=== PATIENT | female | born 1955 | race Caucasian/White ===

== ENCOUNTER → 2017-09-25 | Outpatient (CLI) | payer SELFPAY ==
[2017-09-25 11:53] LABS: EOS % 0.4 % (1.0-5.0); HEMATOCRIT 47.1 % (37.0-47.0); HEMOGLOBIN 15.2 g/dL (12.5-16.0); LYMPH# 1.4 (1.50-4.00); MEAN CELL VOLUME 98 fl (78-100); MEAN CORPUSCULAR HEMOGLOBIN 32 pg (27-31); MEAN CORPUSCULAR HGB CONC 32 g/dL (33-37); MEAN PLATELET VOLUME 9.5 fl (7.4-10.4); MONO # 0.3 (0.20-0.80); NEU # 6.3 (1.40-6.50); PLATELET COUNT 331 K/mm3 (130-400); RED BLOOD COUNT 4.83 M/mm3 (4.10-5.30); RED CELL DISTRIBUTION WIDTH 13.2 % (11.5-14.5)
[2017-09-25 12:48] LABS: ALBUMIN 4.3 g/dL (3.5-5.0); BUN/CREATININE RATIO 13.5 (6.0-26.0); CALCIUM 9.6 mg/dL (8.4-10.2); TOTAL BILIRUBIN 0.7 mg/dL (0.2-1.3); TOTAL PROTEIN 7.7 g/dL (6.3-8.2)
[2017-09-25 13:09] LABS: URINE APPEARANCE HAZY; URINE BILIRUBIN NEGATIVE (NEGATIVE); URINE BLOOD NEGATIVE (NEGATIVE); URINE COLOR YELLOW; URINE GLUCOSE NEGATIVE (NEGATIVE); URINE KETONE NEGATIVE (NEGATIVE); URINE LEUKOCYTE ESTERASE TRACE (NEGATIVE); URINE NITRATE NEGATIVE (NEGATIVE); URINE PROTEIN(semi-quant) NEGATIVE (NEGATIVE); URINE UROBILINOGEN NORMAL (NORMAL)
== END ==
LOC: LAB 11:35
PROVIDERS: Nurse Practitioner Family
DX: R35.0 Frequency of micturition (principal); R10.813 Right lower quadrant abdominal tenderness

== ENCOUNTER → 2018-11-21 | Outpatient (CLI) | payer MEDICARE, MEDICAID ==
[~2018-11-21] VITALS: Ht 152.4 cm; Wt 87.7 kg
[~2018-11-21] MED LIST: ALLOPURINOL300 M1 PO; ATHLETE'S FOOT1% TP; CELEXA 20MG20 MG/TA1 PO; CLARITIN LIQUI-10 MG PO; FIORICET 325 MG1 TAB; RANITIDINE HCL300 M2 PO; TRIAMCINOLONE A15 G1 TOP; ULTRAM50 M1 PO
[2018-11-21 14:26] LABS: EOS # 0.3 (0.04-0.40); HEMATOCRIT 43.6 % (37.0-47.0); HEMOGLOBIN 14.1 g/dL (12.5-16.0); LYMPH# 2.5 (1.50-4.00); MEAN CELL VOLUME 94 fl (78-100); MEAN CORPUSCULAR HEMOGLOBIN 31 pg (27-31); MEAN CORPUSCULAR HGB CONC 32 g/dL (33-37); MEAN PLATELET VOLUME 9.4 fl (7.4-10.4); MONO # 0.4 (0.20-0.80); NEU # 4.3 (1.40-6.50); PLATELET COUNT 309 K/mm3 (130-400); RED BLOOD COUNT 4.62 M/mm3 (4.10-5.30); RED CELL DISTRIBUTION WIDTH 13.3 % (11.5-14.5); WHITE BLOOD COUNT 7.7 K/mm3 (4.8-10.8)
[2018-11-21 14:40] LABS: PROTHROMBIN TIME 9.5 SECONDS (9.0-12.0)
[2018-11-21 14:41] LABS: ALBUMIN 4.1 g/dL (3.5-5.0); CALCIUM 9.4 mg/dL (8.4-10.2); POTASSIUM 3.9 mmol/L (3.6-5.0); TOTAL BILIRUBIN 0.3 mg/dL (0.2-1.3); TOTAL PROTEIN 7.6 g/dL (6.3-8.2)
[2018-11-21 15:00] VITALS: BP 138/84
[2018-11-21 15:23] LABS: URINE APPEARANCE HAZY; URINE COLOR YELLOW
[2018-11-21 15:24] LABS: URINE BILIRUBIN NEGATIVE (NEGATIVE); URINE BLOOD TRACE (NEGATIVE); URINE GLUCOSE NEGATIVE (NEGATIVE); URINE KETONE NEGATIVE (NEGATIVE); URINE LEUKOCYTE ESTERASE NEGATIVE (NEGATIVE); URINE NITRATE NEGATIVE (NEGATIVE); URINE PROTEIN(semi-quant) NEGATIVE (NEGATIVE); URINE UROBILINOGEN NORMAL (NORMAL)
== END ==
LOC: AMSURD 14:11
PROVIDERS: Internal Medicine
DX: Z01.818 Encounter for other preprocedural examination (principal); N30.00 Acute cystitis without hematuria; M17.10 Unilateral primary osteoarthritis, unspecified knee

== ENCOUNTER → 2018-11-28 | Outpatient (CLI) | payer MEDICARE, MEDICAID ==
[2018-11-21 15:00] VITALS: BP 138/84
[2018-11-28 10:55] LABS: PH-URINE 5.5 (5.0 - 8.0); URINE APPEARANCE CLOUDY; URINE BILIRUBIN NEGATIVE (NEGATIVE); URINE BLOOD TRACE (NEGATIVE); URINE COLOR YELLOW; URINE GLUCOSE NEGATIVE (NEGATIVE); URINE KETONE NEGATIVE (NEGATIVE); URINE LEUKOCYTE ESTERASE 1+ (NEGATIVE); URINE NITRATE NEGATIVE (NEGATIVE); URINE PROTEIN(semi-quant) NEGATIVE (NEGATIVE); URINE UROBILINOGEN NORMAL (NORMAL)
[2018-11-28 10:56] LABS: URINE MUCUS PRESENT (NOT PRESENT)
== END ==
LOC: LAB 09:39
PROVIDERS: Internal Medicine
DX: Z01.818 Encounter for other preprocedural examination (principal); N30.00 Acute cystitis without hematuria; M17.10 Unilateral primary osteoarthritis, unspecified knee

== ENCOUNTER → 2018-11-29 | Outpatient (CLI) | payer MEDICARE, MEDICAID ==
[2018-11-29 11:16] VITALS: BP 142/79
== END ==
LOC: PT 13:13 → EDSTATUS 13:30 → PT 13:30
DX: Z96.651 Presence of right artificial knee joint (principal)

== ENCOUNTER → 2018-11-29 | Outpatient (CLI) | payer MEDICARE, MEDICAID ==
[~2018-11-29] VITALS: Ht 152.4 cm; Wt 87.7 kg
[2018-11-29 11:16] VITALS: BP 142/79
[2018-11-29 11:26] LABS: URINE APPEARANCE CLEAR; URINE BILIRUBIN NEGATIVE (NEGATIVE); URINE BLOOD NEGATIVE (NEGATIVE); URINE COLOR YELLOW; URINE GLUCOSE NEGATIVE (NEGATIVE); URINE KETONE NEGATIVE (NEGATIVE); URINE LEUKOCYTE ESTERASE NEGATIVE (NEGATIVE); URINE NITRATE NEGATIVE (NEGATIVE); URINE PROTEIN(semi-quant) TRACE mg/dL (NEGATIVE); URINE UROBILINOGEN NORMAL (NORMAL); URINE WBC 0-1 /hpf (0-3)
== END ==
LOC: AMSURD 09:06 → LAB 09:06
PROVIDERS: Internal Medicine
DX: Z01.818 Encounter for other preprocedural examination (principal); N30.00 Acute cystitis without hematuria

== ENCOUNTER 2019-01-22 13:00 | Outpatient (RCR) | payer MEDICARE, MEDICAID ==
[2018-11-29 11:16] VITALS: BP 142/79
== END 2019-01-22 13:30 | disposition still patient (30) ==
LOC: PT 13:00
DX: Z47.1 Aftercare following joint replacement surgery (principal); Z96.651 Presence of right artificial knee joint

== ENCOUNTER → 2019-02-10 | Outpatient (CLI) | payer MEDICARE, MEDICAID ==
[2018-11-29 11:16] VITALS: BP 142/79
[2019-02-10 12:24] LABS: EOS # 0.3 (0.04-0.40); EOS % 5.5 % (1.0-5.0); HEMATOCRIT 43.3 % (37.0-47.0); HEMOGLOBIN 13.7 g/dL (12.5-16.0); MEAN CELL VOLUME 95 fl (78-100); MEAN CORPUSCULAR HEMOGLOBIN 30 pg (27-31); MEAN CORPUSCULAR HGB CONC 32 g/dL (33-37); MEAN PLATELET VOLUME 9.3 fl (7.4-10.4); MONO # 0.5 (0.20-0.80); NEU # 3.1 (1.40-6.50); PLATELET COUNT 298 K/mm3 (130-400); RED BLOOD COUNT 4.57 M/mm3 (4.10-5.30); RED CELL DISTRIBUTION WIDTH 12.9 % (11.5-14.5)
[2019-02-10 12:36] LABS: ALBUMIN 3.7 g/dL (3.4-4.8); POTASSIUM 3.9 mmol/L (3.5-5.1)
[2019-02-10 12:37] LABS: CALCIUM 9.2 mg/dL (8.3-10.5)
[2019-02-10 12:38] LABS: TOTAL PROTEIN 6.8 g/dL (6.2-8.1)
[2019-02-10 12:40] LABS: TOTAL BILIRUBIN 0.3 mg/dL (0.2-1.2)
[2019-02-10 12:51] LABS: PROTHROMBIN TIME 9.5 SECONDS (9.0-12.0)
[2019-02-10 13:12] LABS: PH-URINE 5.5 (5.0 - 8.0); URINE APPEARANCE CLEAR; URINE COLOR YELLOW
[2019-02-10 13:13] LABS: URINE BILIRUBIN NEGATIVE (NEGATIVE); URINE BLOOD NEGATIVE (NEGATIVE); URINE GLUCOSE NEGATIVE (NEGATIVE); URINE KETONE NEGATIVE (NEGATIVE); URINE LEUKOCYTE ESTERASE TRACE (NEGATIVE); URINE NITRATE NEGATIVE (NEGATIVE); URINE PROTEIN(semi-quant) TRACE mg/dL (NEGATIVE); URINE UROBILINOGEN NORMAL (NORMAL)
== END ==
LOC: LAB 12:12
PROVIDERS: Internal Medicine
DX: Z01.812 Encounter for preprocedural laboratory examination (principal)

== ENCOUNTER 2019-03-31 13:30 | Outpatient (RCR) | payer MEDICARE, OTHER ==
[2018-11-29 11:16] VITALS: BP 142/79
== END 2019-03-31 14:00 | disposition still patient (30) ==
LOC: PT 13:30
DX: M25.562 Pain in left knee (principal); Z96.652 Presence of left artificial knee joint

== ENCOUNTER → 2019-10-01 | Outpatient (CLI) | payer MEDICARE ==
[2018-11-29 11:16] VITALS: BP 142/79
== END ==
LOC: MAMMO 14:11
DX: Z12.31 Encounter for screening mammogram for malignant neoplasm of breast (principal)

== ENCOUNTER 2019-10-10 13:00 | Outpatient (RCR) | payer MEDICARE, OTHER ==
[2018-11-29 11:16] VITALS: BP 142/79
== END 2019-10-21 | disposition still patient (30) ==
LOC: PT
DX: M54.10 Radiculopathy, site unspecified (principal); M54.2 Cervicalgia

== ENCOUNTER → 2021-06-29 | Outpatient (CLI) | payer MEDICARE | LOC: MAMMO 08:39 | DX: Z12.31 Encounter for screening mammogram for malignant neoplasm of breast (principal); Z00.00 Encounter for general adult medical examination without abnormal findings ==

== ENCOUNTER → 2021-07-04 | Day surgery (SDC) | payer MEDICARE | LOC: MSO 08:37 | DX: Z12.11 Encounter for screening for malignant neoplasm of colon (principal); D12.2 Benign neoplasm of ascending colon; E66.01 Morbid (severe) obesity due to excess calories; F41.9 Anxiety disorder, unspecified; F32.A Depression, unspecified; K21.9 Gastro-esophageal reflux disease without esophagitis; M19.90 Unspecified osteoarthritis, unspecified site; G43.909 Migraine, unspecified, not intractable, without status migrainosus; Z79.1 Long term (current) use of non-steroidal anti-inflammatories (NSAID); Z79.891 Long term (current) use of opiate analgesic; Z79.899 Other long term (current) drug therapy | CPT/HCPCS: 00811; J2704; J3010; J7120 ==

== ENCOUNTER 2021-12-09 09:18 | Emergency (ER) | payer MEDICARE ==
[2021-12-09 10:14] LABS: ALBUMIN 3.9 g/dL (3.4-4.8); POTASSIUM 4.7 mmol/L (3.5-5.1)
[2021-12-09 10:15] LABS: CALCIUM 9.6 mg/dL (8.3-10.5)
[2021-12-09 10:17] LABS: TOTAL PROTEIN 7.2 g/dL (6.2-8.1)
[2021-12-09 10:18] LABS: TOTAL BILIRUBIN 0.5 mg/dL (0.2-1.2)
[2021-12-09 10:22] LABS: BASO # 0.06 K/mm3 (0.02-0.10); EOS # 0.45 K/mm3 (0.04-0.40); EOS % 6.6 % (1.0-5.0); HEMATOCRIT 44.1 % (37.0-47.0); HEMOGLOBIN 14.2 g/dL (12.5-16.0); LYMPH# 2.26 K/mm3 (1.50-4.00); MEAN CELL VOLUME 94 fl (78-100); MEAN CORPUSCULAR HEMOGLOBIN 30 pg (27-31); MEAN CORPUSCULAR HGB CONC 32 g/dL (33-37); MEAN PLATELET VOLUME 9.5 fl (7.4-10.4); MONO # 0.39 K/mm3 (0.20-0.80); NEU # 3.63 K/mm3 (1.40-6.50); PLATELET COUNT 296 K/mm3 (130-400); RED BLOOD COUNT 4.68 M/mm3 (4.10-5.30); RED CELL DISTRIBUTION WIDTH 13.2 % (11.5-14.5); WHITE BLOOD COUNT 6.8 K/mm3 (4.8-10.8)
[2021-12-09 10:51] LABS: URINE APPEARANCE HAZY; URINE BILIRUBIN NEGATIVE (NEGATIVE); URINE BLOOD NEGATIVE (NEGATIVE); URINE COLOR YELLOW; URINE GLUCOSE NEGATIVE (NEGATIVE); URINE KETONE NEGATIVE (NEGATIVE); URINE LEUKOCYTE ESTERASE NEGATIVE (NEGATIVE); URINE NITRATE NEGATIVE (NEGATIVE); URINE PROTEIN(semi-quant) NEGATIVE (NEGATIVE); URINE UROBILINOGEN NORMAL (NORMAL); URINE WBC 0-1 /hpf (0-3)
[2021-12-09 12:55] VITALS: BP 148/85
== END 2021-12-09 12:55 | disposition home or self-care (01) ==
LOC: ED 09:18
PROVIDERS: Nurse Practitioner
DX: R10.31 Right lower quadrant pain (principal); R10.32 Left lower quadrant pain; E66.9 Obesity, unspecified; Z90.49 Acquired absence of other specified parts of digestive tract; Z20.822 Contact with and (suspected) exposure to COVID-19
CPT/HCPCS: J1885; J2405; J3010; J7030; Q9967

== ENCOUNTER → 2022-01-02 | Outpatient (CLI) | payer MEDICARE | LOC: RAD 10:02 | DX: M48.061 Spinal stenosis, lumbar region without neurogenic claudication (principal); M43.16 Spondylolisthesis, lumbar region ==

== ENCOUNTER → 2022-01-20 | Outpatient (CLI) | payer MEDICARE | LOC: RAD 08:58 → MAMMO 09:00 | DX: Z13.820 Encounter for screening for osteoporosis (principal); M81.0 Age-related osteoporosis without current pathological fracture; Z78.0 Asymptomatic menopausal state ==

== ENCOUNTER → 2023-08-10 | Outpatient (CLI) | payer MEDICARE | LOC: MAMMO 08:46 | DX: Z12.31 Encounter for screening mammogram for malignant neoplasm of breast (principal) ==

== ENCOUNTER → 2024-11-13 | Outpatient (CLI) | payer MEDICARE, MEDICAID | LOC: MAMMO 10:15 | DX: Z12.31 Encounter for screening mammogram for malignant neoplasm of breast (principal); Z13.820 Encounter for screening for osteoporosis ==

== ENCOUNTER → 2024-11-13 | Outpatient (CLI) | payer MEDICARE, MEDICAID | LOC: RAD 10:26 → MAMMO 11:00 | DX: Z13.820 Encounter for screening for osteoporosis (principal); Z12.31 Encounter for screening mammogram for malignant neoplasm of breast; M81.0 Age-related osteoporosis without current pathological fracture ==